=== PATIENT | male | born 1965 | race African-American/Black ===

== ENCOUNTER 2024-04-27 08:19 | Outpatient (CLI) | payer OTHER | END 2024-04-27 08:20 | disposition home or self-care (01) | LOC: CSHSLEEP 08:19 | PROVIDERS: ATTEND Family Medicine | DX: G47.33 Obstructive sleep apnea (adult) (pediatric) (principal); R53.83 Other fatigue; R09.89 Other specified symptoms and signs involving the circulatory and respiratory systems; F32.A Depression, unspecified; F41.9 Anxiety disorder, unspecified; E11.9 Type 2 diabetes mellitus without complications; K21.9 Gastro-esophageal reflux disease without esophagitis; E66.9 Obesity, unspecified; Z68.34 Body mass index [BMI] 34.0-34.9, adult; R06.83 Snoring; G47.00 Insomnia, unspecified; R35.1 Nocturia; I10 Essential (primary) hypertension | CPT/HCPCS: 95811 ==